=== PATIENT | male | born 1940 | race Two or more races ===

== ENCOUNTER 2017-03-30 19:01 | Emergency (ER) | payer BC, MEDICARE, OTHER ==
[~2017-03-30] VITALS: Ht 152.4 cm; Wt 54.4 kg
[2017-03-30 22:50] VITALS: BP 142/87
[2017-03-30] MEDS ORDERED: BACITRACIN-POLYMYXIN B TOPICAL OINT UD TOP ONE (23:33)
== END 2017-03-30 23:40 | disposition home or self-care (01) ==
LOC: ER 19:01
DX: S01.111A Laceration without foreign body of right eyelid and periocular area, initial encounter (principal); W01.0XXA Fall on same level from slipping, tripping and stumbling without subsequent striking against object, initial encounter; Y93.89 Activity, other specified; Y99.8 Other external cause status; Y92.89 Other specified places as the place of occurrence of the external cause
CPT/HCPCS: 12011; 82962